=== PATIENT | female | born 1970 | race Caucasian/White ===

== ENCOUNTER 2023-03-22 12:22 | Emergency (ER) | payer MEDICARE ==
[~2023-03-22] VITALS: Ht 154.9 cm; Wt 72.7 kg
[2023-03-22 12:39] VITALS: BP 181/92; PULSE 66; RESP 18; TEMP 97.8; O2SAT 98
[2023-03-22] MEDS ORDERED: AMOX-580 PO (13:35)
== END 2023-03-22 13:29 | disposition home or self-care (01) ==
LOC: ER 12:24
DX: S01.01XA Laceration without foreign body of scalp, initial encounter (principal); W54.0XXA Bitten by dog, initial encounter; Y93.89 Activity, other specified; Y92.89 Other specified places as the place of occurrence of the external cause; Y99.8 Other external cause status
CPT/HCPCS: 12001; 99283; J7030